=== PATIENT | male | born 1985 | race Caucasian/White ===

== ENCOUNTER 2019-08-11 20:41 | Emergency (ER) | payer OTHER, SELFPAY ==
[2019-08-11 20:43] VITALS: BP 138/93; PULSE 70; RESP 20; TEMP 36.4; O2SAT 100; BMI 30.7
--- NOTE | 2019-08-11 20:57 | ED.VIS.GEN ---
History of Present Illness Chief Complaint: Lower Extremity Injury Detail of Chief Complaint: Pain left calf Informant: Patient, Significant Other Onset: Today Context: Onset with activity, Sudden Onset Timing: Continuous Quality: Pain proximal left gastrocnemius Location: Proximal left gastrocnemius/popliteal fossa Current Severity: Mild Maximum Severity: Severe Worsened by: Palpation and flexion Relieved by: Better after rest and slightly flexed Associated Symptoms: Painful walking Narrative: Patient is a 34-year-old [facility] man who presents with left calf pain while playing basketball. He felt something tear and pop. He localizes the pain to the proximal left gastroc edema/popliteal fossa. He denies knee pain. He denies paresthesia, anesthesia or motor weakness. He denies direct trauma. He states it did feel like someone hit him in the back of the calf. Prior similar symptoms: No Recent Illness/Hospitalization: No - Past Medical History (1) No significant past medical history Status: Acute Past Medical History - Allergies and Home Meds Allergies/Adverse Reactions: Allergies No Known Allergies Allergy (Verified 08/11/19 20:44) Primary Care Physician: Neto Kramer,Out of [Primary Care Provider] - Prior records reviewed: No Past Medical History: None Surgical History: no surgical history Lives: Spouse/ Significant Other, With Family Smoking Status: Never smoker Alcohol: None Review of Systems General: Denies: Chills, Fever, Malaise, Sweats Musculoskeletal: Reports: Extremity Pain. Denies: Myalgias, Arthralgias, Neck pain, Back pain, Swelling Skin: Denies: Rash, Wounds Neurological: Denies: Weakness, Parasthesia, Numbness Physical Exam Vital Signs/Narrative: Vital Signs Temp Pulse Resp BP Pulse Ox 08/11/19 20:43 97.6 F L 70 20 H 138/93 H 100 Inital Vital Signs reviewed: Yes General: Well nourished, Well developed, No Acute Distress - Appears uncomfortable when he moves his left lower extremity. Head: Normocephalic, Atraumatic Eyes: Perrl, EOMI. Negative for: Pale conjunctiva, Scleral icterus Cardiovascular: Regular rate, Regular rhythm, No murmurs Respiratory: No distress, CTA bilaterally, Chest nontender Extremities: No edema, Tenderness - Tenderness distal of the left popliteal fossa., - - Is no swelling in the left knee. The patella is not ballotable. There is no effusion. There is no laxity with varus or valgus stress testing. Lindy's test and modified Dick's tests are negative. The modified Dick's test was limited secondary to pain with flexion in the popliteal fossa. DP and PT pulses are palpable. Skin: Normal color, No rash. Negative for: Cyanosis, Diaphoresis, Jaundice, No Trauma Neurological: Alert, Oriented x3, Cranial nerves II-XII grossly intact, Normal Strength, Normal Sensation. Negative for: Normal Gait Psychological: Normal affect, Normal Mood Diagnostic/Tx/Re-eval - Medical Decision Making Patient's history and physical exam are consistent with plantaris muscle tear. Imaging is not indicated. This is an extra-articular injury. ED Disposition - Plan for ED Patient: Disposition: Home or Assisted Living Diagnosis: Traumatic rupture of left plantaris muscle Instructions: MUSCLE STRAIN, Extremity Prescriptions: Naproxen [Naprosyn] 500 mg PO BID #14 tab Prescription Printed Hydrocodone Bitart/Apap 5-325 [Evans 5MG-325MG] 1 tab PO Q6H PRN PRN 3 Days #10 tab PRN Reason: Pain Prescription Printed Referrals: [facility] Doctor,Out of [Primary Care Provider] - 10-14 Days if not better Additional Instructions: Rest, ice, elevation. Apply ice 20 to 30 minutes per application 6-8 times a day. Use crutches and weight-bear as tolerated only.
[2019-08-11] MEDS: Naproxen 500 MG Tablet PO (21:14)
[2019-08-11] MEDS: HYDROcodone Bitartrate/Apap 5/325 Tablet PO (21:14)
== END 2019-08-11 21:18 | disposition home or self-care (01) ==
LOC: ED 21:10
PROVIDERS: Emergency Provider Emergency Medicine
DX: S86.112A Strain of other muscle(s) and tendon(s) of posterior muscle group at lower leg level, left leg, initial encounter (principal); X58.XXXA Exposure to other specified factors, initial encounter; Y93.67 Activity, basketball; Y92.9 Unspecified place or not applicable
CPT/HCPCS: 99284